=== PATIENT | female | born 1945 | race Caucasian/White ===

== ENCOUNTER → 2017-09-30 | Outpatient (CLI) | payer OTHER, MEDICARE ==
[~2017-09-30] MED LIST: ACET650T24 PO; ADV250 IH; ASPI-555 PO; CHOL50004 PO; CLON1TAB4 PO; FLAX100031 PO; FLUT16H NASAL; HYDR12.530 PO; ISOS30TA6 PO; LEVO25TA54 PO; MELA3TAB69 PO; MULT-1203 PO; NEBI10TA PO; POTA-79 PO; TERB250T51 PO; TOPI50TA24 PO; VITA-158 PO; VITA400C70 PO; potassium PO; vitamin a PO; vitamin c PO
== END ==
LOC: RAH 09-29 11:38
PROVIDERS: ATTEND Internal Medicine
DX: M25.552 Pain in left hip (principal); M25.551 Pain in right hip
CPT/HCPCS: 73522

== ENCOUNTER 2017-10-05 21:13 | Emergency (ER) | payer OTHER, MEDICARE ==
[~2017-10-05 21:13] MED LIST changes: -CLON1TAB4 PO; +CLON1TAB5 PO
[2017-10-05] MEDS ORDERED: SODIUM CHLORIDE 0.9% 500ML 500 ML IV ONE (21:47)
[2017-10-05 21:53] LABS: BASOPHILS % (AUTO) 0.5 % (0.0-5.0); EOSINOPHILS % (AUTO) 1.7 % (0.0-8.0); HEMATOCRIT 42.3 % (36-48); MEAN CORPUSCULAR HEMOGLOBIN 30.4 pg (27.0-33.0); MEAN CORPUSCULAR HGB CONC 34.4 g/dL (32.0-36.0); MEAN CORPUSCULAR VOLUME 88.5 fL (79-99); MONOCYTES % (AUTO) 8.7 % (3.0-13.0); NEUTROPHILS % (AUTO) 60.1 % (40.0-77.0); NUCLEATED RED BLOOD CELLS 0.1 % (0.0-0.19); PLATELET COUNT (AUTO) 329 K/uL (130-400); RED BLOOD CELL COUNT(AUTO) 4.78 MIL/uL (4.00-5.50); RED CELL DISTRIBUTION WIDTH 13.6 % (11.0-15.5); WHITE BLOOD COUNT (AUTO) 9.5 K/uL (4.8-10.8)
[2017-10-05 21:55] LABS: CREATININE 0.8 mg/dL (0.5-1.5); POTASSIUM 3.7 mmol/L (3.5-5.1)
[2017-10-05 21:59] LABS: ALBUMIN 3.4 g/dL (3.5-5.0); BILIRUBIN,TOTAL 0.3 mg/dL (0.2-1.0); TOTAL PROTEIN, SERUM 7.1 g/dL (6.0-8.3)
== END 2017-10-06 00:03 | disposition home or self-care (01) ==
LOC: EDH 21:13
DX: F41.9 Anxiety disorder, unspecified (principal); G47.00 Insomnia, unspecified; E07.9 Disorder of thyroid, unspecified; Z88.0 Allergy status to penicillin; Z88.6 Allergy status to analgesic agent; Z88.2 Allergy status to sulfonamides; Z88.7 Allergy status to serum and vaccine
CPT/HCPCS: 36415; 80053; 82550; 84484; 85025; 93005; 96360; 99285; J7040

== ENCOUNTER → 2018-08-05 | Outpatient (CLI) | payer OTHER, MEDICARE ==
[~2018-08-05] MED LIST changes: +CLON1TAB12 PO; -CLON1TAB5 PO
== END | disposition home or self-care (01) ==
LOC: RAH 08:25
PROVIDERS: ATTEND Internal Medicine
DX: M47.816 Spondylosis without myelopathy or radiculopathy, lumbar region (principal); M85.88 Other specified disorders of bone density and structure, other site
CPT/HCPCS: 72100

== ENCOUNTER 2019-01-11 10:21 | Observation (INO) | payer OTHER, MEDICARE ==
[~2019-01-11] VITALS: Ht 167.6 cm; Wt 96.6 kg
[2019-01-11 10:53] LABS: BASOPHILS % (AUTO) 0.3 % (0.0-5.0); EOSINOPHILS % (AUTO) 0.3 % (0.0-8.0); HEMATOCRIT 38.2 % (36-48); LYMPHOCYTES % (AUTO) 7.6 % (21.0-51.0); MEAN CORPUSCULAR HEMOGLOBIN 30.7 pg (27.0-33.0); MEAN CORPUSCULAR HGB CONC 33.8 g/dL (32.0-36.0); MEAN CORPUSCULAR VOLUME 90.8 fL (79-99); MONOCYTES % (AUTO) 6.9 % (3.0-13.0); NEUTROPHILS % (AUTO) 84.9 % (40.0-77.0); PLATELET COUNT (AUTO) 284 K/uL (130-400); RED BLOOD CELL COUNT(AUTO) 4.21 MIL/uL (4.00-5.50); WHITE BLOOD COUNT (AUTO) 11.1 K/uL (4.8-10.8)
[2019-01-11] MEDS ORDERED: SODIUM CHLORIDE 0.9% 500ML 500 ML IV ONE (11:02)
[2019-01-11 11:03] LABS: CREATININE 0.8 mg/dL (0.5-1.5); POTASSIUM 3.8 mmol/L (3.5-5.1)
[2019-01-11 11:07] LABS: INR 1.02 (0.85-1.15); PARTIAL THROMBOPLASTIN TIME 29.3 SEC (26.3-35.5); PROTHROMBIN TIME 10.7 SEC (9.6-11.6)
[2019-01-11 11:10] LABS: ALBUMIN 3.1 g/dL (3.5-5.0); BILIRUBIN,TOTAL 0.6 mg/dL (0.2-1.0); TOTAL PROTEIN, SERUM 5.8 g/dL (6.0-8.3)
[2019-01-11] MEDS ORDERED: SODIUM CHLORIDE 0.9% 1000ML 1,000 ML IV SCH (12:46)
[2019-01-11] MEDS ORDERED: ACETAMINOPHEN 325 MG TAB PO PRN (13:00)
[2019-01-11] MEDS ORDERED: ONDANSETRON HCL 4 MG/2 ML VIAL IV PRN (13:00)
[2019-01-11] MEDS ORDERED: HYDRALAZINE HCL 20 MG/ML VIAL IV PRN (13:00)
[2019-01-11] MEDS ORDERED: SODIUM CHLORIDE 0.9% 1000ML 1,000 ML IV ONE (15:39)
[2019-01-11 18:18] VITALS: BP 116/46
--- NOTE | 2019-01-11 18:32 | NUR ---
PATIENT ARRIVED IN ROOM FROM CT.
[2019-01-11] MEDS ORDERED: POTASSIUM CL (18:49)
[2019-01-11] MEDS ORDERED: ASPI-1197 PO (18:49)
[2019-01-11] MEDS ORDERED: CHLO4TAB28 PO (18:49)
[2019-01-11] MEDS ORDERED: ALPR0.255 PO (18:49)
[2019-01-11] MEDS ORDERED: PANT40TA25 PO (19:03)
[2019-01-11] MEDS ORDERED: ACET-2743 PO (19:03)
[2019-01-11 20:00] VITALS: BP 128/57
[2019-01-11] MEDS ORDERED: FAMOTIDINE/PF 20 MG/2 ML VIAL IV SCH (21:00)
[2019-01-11] MEDS: ACETAMINOPHEN 325 MG TAB PO PRN (21:26)
[2019-01-11 22:59] LABS: CREATINE KINASE, TOTAL 26 U/L (21-232); MYOGLOBIN 41 ng/mL (10-92); THYROID STIMULATING HORMONE 0.45 uIU/mL (0.36-3.74); TROPONIN I < 0.04 ng/mL (0.00-0.06)
[2019-01-12] VITALS: BP 121/50
[2019-01-12 04:00] VITALS: BP 120/62
[2019-01-12 04:18] LABS: CREATINE KINASE, TOTAL 29 U/L (21-232); MYOGLOBIN 40 ng/mL (10-92); TROPONIN I < 0.04 ng/mL (0.00-0.06)
[2019-01-12 08:00] VITALS: BP 121/48
[2019-01-12] MEDS ORDERED: SUB TO BREO ELLIPTA 100MCG/25MCG PER P&T IH SCH (09:00)
[2019-01-12] MEDS ORDERED: ASPIRIN 81MG TAB.CHEW PO SCH (09:00)
[2019-01-12] MEDS: FLUTICASONE PROPIONATE 50MCG/SPRAY 16 GM BOTTLE EN SCH ×2 (09:21→20:30)
[2019-01-12] MEDS: ALPRAZOLAM 0.25 MG TABLET PO SCH (09:22)
[2019-01-12] MEDS: ACETAMINOPHEN 325 MG TAB PO PRN ×3 (09:22→23:14)
[2019-01-12] MEDS: ASCORBIC ACID 500 MG TAB PO SCH (09:22)
[2019-01-12] MEDS: ASPIRIN 81MG TAB.CHEW PO SCH (09:23)
[2019-01-12] MEDS: VITAMIN E 400 UNIT CAPSULE PO SCH (09:23)
[2019-01-12] MEDS: LEVOTHYROXINE 25 MCG TABLET PO SCH (09:23)
[2019-01-12] MEDS: PANTOPRAZOLE SODIUM 40 MG TABLET.DR PO SCH (09:24)
[2019-01-12] MEDS: NEBIVOLOL HCL 5 MG TABLET PO SCH (09:25)
--- NOTE | 2019-01-12 09:30 | NUR ---
INITIAL MET W PT FOR DC PLANNING LIVES ALONE, USES MOSTLY MEDICAL TRANSPORT, BUT HAS A [employer] OF FRIEND THAT CAN PROVIDE TRANSPORT IF NEEDED.LIVES IN AN APT W AN ELEVATOR. USES A WALKER, ROLLING WALKER, AND [facility] [employer] R PROVIDER SERVICE WEEKLY, DCP HOME, NO DC NEEDS AT THIS TIME, WILL FOLLOW. Addendum: 01/13/19 at 1850 by RANGEL DUONG RN CM Amended: Links added.
[2019-01-12] MEDS: ENOXAPARIN SODIUM 40 MG/0.4 ML SYRINGE SQ SCH (09:31)
[2019-01-12 09:50] LABS: CREATINE KINASE, TOTAL 23 U/L (21-232); MYOGLOBIN 33 ng/mL (10-92); TROPONIN I < 0.04 ng/mL (0.00-0.06)
[2019-01-12 12:00] VITALS: BP 125/59
--- NOTE | 2019-01-12 12:30 | NUR ---
C/O INCREASED PAIN TO THE RIGHT WRIST, SWELLING NOTED ON THE AREA. ARM ELEVATED ON A PILLOW. DR NAVARRO WAS MADE AWARE. ORDER RECEIVED FOR X-RAY.
[2019-01-12] MEDS: ALBUTEROL SULFATE 0.083% 2.5 MG/3 ML INH IH SCH ×3 (12:47→23:15)
--- NOTE | 2019-01-12 12:50 | NUR ---
DR FARAH CAME IN TO SEE THE PATIENT AND GOT A REPORT FROM HER REGARDING HER SYNCOPAL EPISODE. PLAN IS TO PLACE HER ON A NON INVASIVE HEART MONITOR.
--- NOTE | 2019-01-12 13:15 | NUR ---
SOLAR FIELD SERVICE TECHNICIAN IS HERE TO PERFORM THE ECHOCARDIOGRAM.
[2019-01-12] MEDS ORDERED: ADV250 IH (14:51)
[2019-01-12] MEDS ORDERED: GLUC-145 PO (14:51)
[2019-01-12] MEDS ORDERED: RALO60TA13 PO (14:51)
[2019-01-12] MEDS ORDERED: CALC-1009 PO (14:51)
[2019-01-12 16:00] VITALS: BP 140/60
[2019-01-12] MEDS: BUDESONIDE 0.5 MG/2 ML INH IH SCH (18:13)
[2019-01-12 20:00] VITALS: BP 120/56
[2019-01-12] MEDS: CHLORPHENIRAMINE 4 MG PO SCH (20:31)
[2019-01-12] MEDS: **HM** MELATONIN 3MG PO SCH (20:32)
[2019-01-12 22:39] LABS: APPEARANCE,URINE Clear (CLEAR); BILIRUBIN,URINE Negative (NEGATIVE); COLOR,URINE Yellow (YELLOW); GLUCOSE, URINE (UA) Negative (NEGATIVE); KETONES,URINE Negative (NEGATIVE); LEUKOCYTE ESTERASE ,URINE Small (NEGATIVE); NITRATE,URINE Negative (NEGATIVE); OCCULT BLOOD,URINE Negative (NEGATIVE); PROTEIN,URINE Negative (NEGATIVE)
[2019-01-12 23:03] LABS: BACTERIA,URINE Few /HPF (None Seen); RBC,URINE 0-1 /HPF (0-1); SQUAMOUS EPITHELIAL CELL,UR Moderate /HPF (0-2)
[2019-01-13] VITALS (7 sets, daily range): BP systolic 110–152; BP diastolic 50–80
[2019-01-13] MEDS: ACETAMINOPHEN 325 MG TAB PO PRN ×2 (03:08→17:34)
[2019-01-13] MEDS: ALBUTEROL SULFATE 0.083% 2.5 MG/3 ML INH IH SCH ×4 (06:23→23:10)
[2019-01-13] MEDS: BUDESONIDE 0.5 MG/2 ML INH IH SCH ×2 (06:23→18:21)
[2019-01-13] MEDS ORDERED: HYDROCHLOROTHIAZIDE 25 MG TABLET PO SCH (09:00)
[2019-01-13] MEDS: ALPRAZOLAM 0.25 MG TABLET PO SCH (09:00)
[2019-01-13] MEDS: NEBIVOLOL HCL 5 MG TABLET PO SCH (09:02)
[2019-01-13] MEDS: ASCORBIC ACID 500 MG TAB PO SCH (09:02)
[2019-01-13] MEDS: PANTOPRAZOLE SODIUM 40 MG TABLET.DR PO SCH (09:02)
[2019-01-13] MEDS: FLUTICASONE PROPIONATE 50MCG/SPRAY 16 GM BOTTLE EN SCH ×2 (09:02→20:31)
[2019-01-13] MEDS: LEVOTHYROXINE 25 MCG TABLET PO SCH (09:02)
[2019-01-13] MEDS: VITAMIN E 400 UNIT CAPSULE PO SCH (09:03)
[2019-01-13] MEDS: ASPIRIN 81MG TAB.CHEW PO SCH (09:03)
[2019-01-13] MEDS: ENOXAPARIN SODIUM 40 MG/0.4 ML SYRINGE SQ SCH (09:04)
--- NOTE | 2019-01-13 17:35 | NUR ---
RIGHT HAND SWELLING Site erythematous and swollen. Three ice packs have lynn given for 20-minutes each. Patient reports her discomfort and swelling has improved considerably. Tylenol given at this time as requested.
--- NOTE | 2019-01-13 19:30 | NUR ---
MD ROUNDS PATIENT AWAKE AND ALERT SITTING UP TO CHAIR. VITALS STABLE. AFEBRILE. NO COMPLAINTS OF PAIN VOICED AT THIS TIME. VISITED WITH PATIENT. POC DISCUSSED. NEW ORDERS RECEIVED AND CARRIED OUT. PATIENT AWARE. WILL CONTINUE TO BE OBSERVED. CALL LIGHT WITHIN REACH. WILL CONTINUE TO BE OBSERVED. Addendum: 01/13/19 at 2019 by SPENCER PALMA RN RN Amended: Links added.
[2019-01-13] MEDS: CHLORPHENIRAMINE 4 MG PO SCH (20:29)
[2019-01-13] MEDS: **HM** MELATONIN 3MG PO SCH (20:29)
[2019-01-13] MEDS ORDERED: TERB250T51 PO (20:52)
[2019-01-14 03:30] VITALS: BP 125/54
[2019-01-14 04:37] LABS: BASOPHILS % (AUTO) 0.3 % (0.0-5.0); EOSINOPHILS % (AUTO) 3.3 % (0.0-8.0); HEMATOCRIT 34.7 % (36-48); LYMPHOCYTES % (AUTO) 30.5 % (21.0-51.0); MEAN CORPUSCULAR HEMOGLOBIN 31.2 pg (27.0-33.0); MEAN CORPUSCULAR HGB CONC 34.8 g/dL (32.0-36.0); MEAN CORPUSCULAR VOLUME 89.8 fL (79-99); MONOCYTES % (AUTO) 9.2 % (3.0-13.0); NEUTROPHILS % (AUTO) 56.7 % (40.0-77.0); PLATELET COUNT (AUTO) 313 K/uL (130-400); RED BLOOD CELL COUNT(AUTO) 3.86 MIL/uL (4.00-5.50); RED CELL DISTRIBUTION WIDTH 12.5 % (11.0-15.5); WHITE BLOOD COUNT (AUTO) 7.8 K/uL (4.8-10.8)
[2019-01-14 04:50] LABS: CREATININE 0.7 mg/dL (0.5-1.5); MAGNESIUM 1.9 mg/dL (1.80-2.40); PHOSPHORUS 3.5 mg/dL (2.5-4.9); POTASSIUM 3.3 mmol/L (3.5-5.1)
[2019-01-14] MEDS: ACETAMINOPHEN 325 MG TAB PO PRN ×2 (05:29→09:38)
[2019-01-14] MEDS: BUDESONIDE 0.5 MG/2 ML INH IH SCH ×2 (06:22→18:08)
[2019-01-14] MEDS: ALBUTEROL SULFATE 0.083% 2.5 MG/3 ML INH IH SCH ×3 (06:22→18:08)
[2019-01-14] MEDS ORDERED: ISOSORBIDE MONO 60 MG TAB.SR PO SCH (09:00)
[2019-01-14] MEDS: ASPIRIN 81MG TAB.CHEW PO SCH (09:00)
[2019-01-14 09:07] VITALS: BP 132/80
[2019-01-14] MEDS ORDERED: PHARMACY COMMUNICATION MISC SCH (09:30)
[2019-01-14] MEDS: FLUTICASONE PROPIONATE 50MCG/SPRAY 16 GM BOTTLE EN SCH (09:34)
[2019-01-14] MEDS: PANTOPRAZOLE SODIUM 40 MG TABLET.DR PO SCH (09:35)
[2019-01-14] MEDS: ASCORBIC ACID 500 MG TAB PO SCH (09:36)
[2019-01-14] MEDS: VITAMIN E 400 UNIT CAPSULE PO SCH (09:37)
[2019-01-14] MEDS: LEVOTHYROXINE 25 MCG TABLET PO SCH (09:37)
[2019-01-14] MEDS: ENOXAPARIN SODIUM 40 MG/0.4 ML SYRINGE SQ SCH (09:40)
[2019-01-14] MEDS: NEBIVOLOL HCL 5 MG TABLET PO SCH (10:39)
[2019-01-14 12:04] VITALS: BP 155/64
[2019-01-14] MEDS ORDERED: POTASSIUM CHLORIDE 20 MEQ ERTAB PO SCH (14:30)
[2019-01-14 16:00] VITALS: BP 106/46
--- NOTE | 2019-01-14 17:37 | NUR ---
DR. NAVARRO Paged him to inform him of BP readings. Stated he is coming in 20 minutes.
[2019-01-14] MEDS ORDERED: ISOS30TA6 PO (18:17)
--- NOTE | 2019-01-14 20:50 | NUR ---
Re: Discharge Rcvd order to d/c patient, IC access removed aseptically with catheter tip intact, instructions given with emphasis on Imdur dos change which pt acknowledges, RC given & also mention she was told by Dr. 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 PT all concern/ questions addressed. No new medication order, reviewed & verbalizes comprehension. Pt currently just waiting for her sisal picker ride.
[2019-01-14] MEDS ORDERED: ALPRAZOLAM 0.25 MG TABLET PO SCH (21:00)
== END 2019-01-14 21:10 | disposition home or self-care (01) ==
LOC: EDH 10:21 → EDHIP 12:46 → 3AH 17:59
PROVIDERS: ADMIT Internal Medicine; ATTEND Internal Medicine
DX: R55 Syncope and collapse (principal); D72.829 Elevated white blood cell count, unspecified; E03.9 Hypothyroidism, unspecified; I10 Essential (primary) hypertension; I25.10 Atherosclerotic heart disease of native coronary artery without angina pectoris; I34.0 Nonrheumatic mitral (valve) insufficiency; J45.909 Unspecified asthma, uncomplicated; K21.9 Gastro-esophageal reflux disease without esophagitis; K22.4 Dyskinesia of esophagus; M85.80 Other specified disorders of bone density and structure, unspecified site; Z82.0 Family history of epilepsy and other diseases of the nervous system; Z82.3 Family history of stroke; Z82.49 Family history of ischemic heart disease and other diseases of the circulatory system; Z82.5 Family history of asthma and other chronic lower respiratory diseases; Z83.3 Family history of diabetes mellitus; Z90.89 Acquired absence of other organs; Z98.41 Cataract extraction status, right eye; Z98.42 Cataract extraction status, left eye; Z86.73 Personal history of transient ischemic attack (TIA), and cerebral infarction without residual deficits; Z88.8 Allergy status to other drugs, medicaments and biological substances; Z79.899 Other long term (current) drug therapy
CPT/HCPCS: 36415 ×3; 70450; 71045; 73130; 80048; 80053; 81001; 82550 ×4; 83735; 83874 ×3; 83880; 84100; 84443; 84484 ×4; 85025 ×2; 85610; 85730; 93005 ×2; 93880; 94640 ×15; 94664; 96361; 96372 ×3; 96374; 99284; C8929; G0378 ×78; J1650 ×3; J3490; J7030 ×2; J7040

== ENCOUNTER → 2019-11-14 | Outpatient (CLI) | payer OTHER, MEDICARE ==
[~2019-11-14] MED LIST changes: +ACET-2743 PO; -ACET650T24 PO; +ALPR0.255 PO; +ASPI-1197 PO; +CALC-1009 PO; +CHLO4TAB28 PO; -CLON1TAB12 PO; -FLAX100031 PO; +GLUC-145 PO; -HYDR12.530 PO; +PANT40TA25 PO; +RALO60TA13 PO; -TOPI50TA24 PO; +VITA-164 PO; -VITA400C70 PO; -potassium PO
== END | disposition home or self-care (01) ==
LOC: RAH 13:56
PROVIDERS: ATTEND Internal Medicine
DX: Z12.31 Encounter for screening mammogram for malignant neoplasm of breast (principal)
CPT/HCPCS: 77067

== ENCOUNTER → 2020-11-19 | Outpatient (CLI) | payer OTHER, MEDICARE ==
[~2020-11-19] MED LIST changes: -ASPI-555 PO; +ASPI-556 PO; -ISOS30TA6 PO; +ISOS30TA92 PO; -PANT40TA25 PO; +PANT40TA54 PO
== END | disposition home or self-care (01) ==
LOC: RAH 09:20
PROVIDERS: ATTEND Internal Medicine
DX: Z12.31 Encounter for screening mammogram for malignant neoplasm of breast (principal)
CPT/HCPCS: 77067

== ENCOUNTER → 2021-01-09 | Outpatient (CLI) | payer OTHER, MEDICARE | END | disposition home or self-care (01) | LOC: RAH 10:14 | PROVIDERS: ATTEND Internal Medicine | DX: M79.604 Pain in right leg (principal); M79.89 Other specified soft tissue disorders; M17.11 Unilateral primary osteoarthritis, right knee | CPT/HCPCS: 73590 ==

== ENCOUNTER 2021-11-05 20:49 | Emergency (ER) | payer OTHER, MEDICARE ==
[~2021-11-05] VITALS: Ht 167.6 cm; Wt 86.2 kg
[~2021-11-05 20:49] MED LIST changes: -TERB250T51 PO; +TERB250T89 PO
[2021-11-06] MEDS ORDERED: LORAZEPAM 2 MG/ML 1 ML VIAL ONE (01:49)
[2021-11-06] MEDS ORDERED: LORAZEPAM 2 MG/ML 1 ML VIAL IVP ONE (02:30)
[2021-11-06] MEDS ORDERED: ACETAMINOPHEN 325 MG TAB ONE (03:27)
[2021-11-06] MEDS ORDERED: ACETAMINOPHEN 325 MG TAB PO ONE (03:30)
[2021-11-06 05:12] VITALS: BP 113/56
== END 2021-11-06 06:40 | disposition home or self-care (01) ==
LOC: EDH 20:49
DX: S80.211A Abrasion, right knee, initial encounter (principal); S50.811A Abrasion of right forearm, initial encounter; S96.912A Strain of unspecified muscle and tendon at ankle and foot level, left foot, initial encounter; S86.912A Strain of unspecified muscle(s) and tendon(s) at lower leg level, left leg, initial encounter; S66.912A Strain of unspecified muscle, fascia and tendon at wrist and hand level, left hand, initial encounter; I10 Essential (primary) hypertension; G40.909 Epilepsy, unspecified, not intractable, without status epilepticus; J45.909 Unspecified asthma, uncomplicated; Z90.49 Acquired absence of other specified parts of digestive tract; Z88.0 Allergy status to penicillin; Z88.2 Allergy status to sulfonamides; Z88.5 Allergy status to narcotic agent; Z88.6 Allergy status to analgesic agent; Z88.7 Allergy status to serum and vaccine; W01.10XA Fall on same level from slipping, tripping and stumbling with subsequent striking against unspecified object, initial encounter; Y93.89 Activity, other specified; Y92.89 Other specified places as the place of occurrence of the external cause; Y99.8 Other external cause status; Z79.82 Long term (current) use of aspirin; Z79.899 Other long term (current) drug therapy
CPT/HCPCS: 70450; 72125; 73030; 73110; 73562; 73610; 96374; 99284; J2060

== ENCOUNTER 2021-12-27 14:56 | Emergency (ER) | payer OTHER, MEDICARE ==
[~2021-12-27] VITALS: Ht 167.6 cm; Wt 85.3 kg
[2021-12-27 14:57] VITALS: BP 130/48
== END 2021-12-27 16:32 | disposition home or self-care (01) ==
LOC: EDH 14:56
DX: S42.212A Unspecified displaced fracture of surgical neck of left humerus, initial encounter for closed fracture (principal); S50.12XA Contusion of left forearm, initial encounter; I10 Essential (primary) hypertension; J45.909 Unspecified asthma, uncomplicated; Z79.51 Long term (current) use of inhaled steroids; Z79.82 Long term (current) use of aspirin; Z79.899 Other long term (current) drug therapy; Z88.0 Allergy status to penicillin; Z88.2 Allergy status to sulfonamides; Z88.5 Allergy status to narcotic agent; Z88.6 Allergy status to analgesic agent; Z88.7 Allergy status to serum and vaccine; Z88.8 Allergy status to other drugs, medicaments and biological substances; Z90.49 Acquired absence of other specified parts of digestive tract; X58.XXXA Exposure to other specified factors, initial encounter; Y93.89 Activity, other specified; Y92.89 Other specified places as the place of occurrence of the external cause; Y99.8 Other external cause status
CPT/HCPCS: 73030; 73080; 73100

== ENCOUNTER 2022-02-01 10:19 | Emergency (ER) | payer OTHER, MEDICARE ==
[~2022-02-01] VITALS: Ht 167.6 cm; Wt 83.5 kg
[2022-02-01 10:32] VITALS: BP 144/80
== END 2022-02-01 11:13 | disposition home or self-care (01) ==
LOC: EDH 10:19
DX: S46.912A Strain of unspecified muscle, fascia and tendon at shoulder and upper arm level, left arm, initial encounter (principal); J45.909 Unspecified asthma, uncomplicated; I10 Essential (primary) hypertension; Z88.0 Allergy status to penicillin; Z88.2 Allergy status to sulfonamides; Z88.5 Allergy status to narcotic agent; Z88.6 Allergy status to analgesic agent; Z88.7 Allergy status to serum and vaccine; Z88.8 Allergy status to other drugs, medicaments and biological substances; Z90.49 Acquired absence of other specified parts of digestive tract; Z79.51 Long term (current) use of inhaled steroids; Z79.82 Long term (current) use of aspirin; Z79.899 Other long term (current) drug therapy; X58.XXXA Exposure to other specified factors, initial encounter; Y93.89 Activity, other specified; Y92.89 Other specified places as the place of occurrence of the external cause; Y99.8 Other external cause status
CPT/HCPCS: 73030

== ENCOUNTER 2022-12-13 21:46 | Emergency (ER) | payer OTHER, MEDICARE ==
[~2022-12-13] VITALS: Ht 167.6 cm; Wt 89.8 kg
[~2022-12-13 21:46] MED LIST changes: +POTA-364 PO; -POTA-79 PO; -VITA-164 PO; +VITA-348 PO
[2022-12-13 22:53] LABS: BASOPHILS % (AUTO) 0.5 % (0.0-5.0); EOSINOPHILS % (AUTO) 2.1 % (0.0-8.0); HEMATOCRIT 37.9 % (36-48); LYMPHOCYTES % (AUTO) 30.9 % (21.0-51.0); MEAN CORPUSCULAR HEMOGLOBIN 29.9 pg (27.0-33.0); MEAN CORPUSCULAR HGB CONC 33.2 g/dL (32.0-36.0); MEAN CORPUSCULAR VOLUME 89.8 fL (79-99); MONOCYTES % (AUTO) 8.3 % (3.0-13.0); NEUTROPHILS % (AUTO) 57.9 % (40.0-77.0); PLATELET COUNT (AUTO) 279 K/uL (130-400); RED BLOOD CELL COUNT(AUTO) 4.22 MIL/uL (4.00-5.50); RED CELL DISTRIBUTION WIDTH 13.6 % (11.0-15.5); WHITE BLOOD COUNT (AUTO) 7.9 K/uL (4.8-10.8)
[2022-12-13] MEDS ORDERED: ACETAMINOPHEN 500 MG TABLET PO ONE (23:00)
[2022-12-13 23:05] LABS: CREATININE 0.6 mg/dL (0.5-1.5); POTASSIUM 3.6 mmol/L (3.5-5.1)
[2022-12-14] MEDS ORDERED: CYCL10TA16 PO (01:32)
[2022-12-14 01:49] VITALS: BP 143/68
== END 2022-12-14 02:00 | disposition home or self-care (01) ==
LOC: EDH 21:46
DX: S66.811A Strain of other specified muscles, fascia and tendons at wrist and hand level, right hand, initial encounter (principal); S56.811A Strain of other muscles, fascia and tendons at forearm level, right arm, initial encounter; S46.811A Strain of other muscles, fascia and tendons at shoulder and upper arm level, right arm, initial encounter; S46.812A Strain of other muscles, fascia and tendons at shoulder and upper arm level, left arm, initial encounter; I10 Essential (primary) hypertension; E03.9 Hypothyroidism, unspecified; J44.9 Chronic obstructive pulmonary disease, unspecified; Z79.82 Long term (current) use of aspirin; Z79.899 Other long term (current) drug therapy; Z87.19 Personal history of other diseases of the digestive system; Z98.890 Other specified postprocedural states; Z88.0 Allergy status to penicillin; Z88.2 Allergy status to sulfonamides; Z88.5 Allergy status to narcotic agent; Z88.6 Allergy status to analgesic agent; Z88.7 Allergy status to serum and vaccine; Z88.8 Allergy status to other drugs, medicaments and biological substances; W18.39XA Other fall on same level, initial encounter; Y93.89 Activity, other specified; Y92.89 Other specified places as the place of occurrence of the external cause; Y99.8 Other external cause status
CPT/HCPCS: 36415; 70450; 71045; 72125; 72170; 73030; 73070; 73100; 80048; 82550; 85025

== ENCOUNTER 2023-04-19 12:16 | Emergency (ER) | payer OTHER, MEDICARE ==
[~2023-04-19] VITALS: Ht 167.6 cm; Wt 87.5 kg
[~2023-04-19 12:16] MED LIST changes: +CYCL10TA16 PO
[2023-04-19] MEDS ORDERED: ACETAMINOPHEN 325 MG TAB PO ONE (14:30)
[2023-04-19] MEDS ORDERED: LEVETIRACETAM 500 MG TABLET PO SCH ×2 (15:30)
[2023-04-19 16:26] VITALS: BP 158/68; PULSE 56; RESP 18; O2SAT 100
== END 2023-04-19 16:27 | disposition home or self-care (01) ==
LOC: EDH 12:16
DX: S16.1XXA Strain of muscle, fascia and tendon at neck level, initial encounter (principal); S01.83XA Puncture wound without foreign body of other part of head, initial encounter; J44.9 Chronic obstructive pulmonary disease, unspecified; I10 Essential (primary) hypertension; E03.9 Hypothyroidism, unspecified; Z79.51 Long term (current) use of inhaled steroids; Z79.82 Long term (current) use of aspirin; Z79.890 Hormone replacement therapy; Z79.899 Other long term (current) drug therapy; Z88.0 Allergy status to penicillin; Z88.2 Allergy status to sulfonamides; Z88.5 Allergy status to narcotic agent; Z88.6 Allergy status to analgesic agent; Z88.7 Allergy status to serum and vaccine; Z88.8 Allergy status to other drugs, medicaments and biological substances; W18.09XA Striking against other object with subsequent fall, initial encounter; Y93.89 Activity, other specified; Y92.89 Other specified places as the place of occurrence of the external cause; Y99.8 Other external cause status
CPT/HCPCS: 70450; 72125

== ENCOUNTER 2024-02-22 11:14 | Emergency (ER) | payer OTHER, MEDICARE ==
[~2024-02-22] VITALS: Ht 167.6 cm; Wt 89.4 kg
[2024-02-22 11:41] VITALS: BP 95/79; PULSE 55; RESP 16; O2SAT 99
[2024-02-22 11:48] LABS: BASOPHILS # (AUTO) 0.03 K/uL (0.00-0.20); BASOPHILS % (AUTO) 0.6 % (0.0-5.0); EOSINOPHILS # (AUTO) 0.11 K/uL (0.00-0.70); EOSINOPHILS % (AUTO) 2.3 % (0.0-8.0); HEMATOCRIT 35.3 % (36-48); IMMATURE GRANULOCYTE ABSOLUTE 0.01 K/uL (0-1); LYMPHOCYTES # (AUTO) 1.4 K/uL (1.0-4.8); LYMPHOCYTES % (AUTO) 29.7 % (21.0-51.0); MEAN CORPUSCULAR HEMOGLOBIN 29.6 pg (27.0-33.0); MEAN CORPUSCULAR HGB CONC 34.3 g/dL (32.0-36.0); MEAN CORPUSCULAR VOLUME 86.3 fL (79-99); MONOCYTES # (AUTO) 0.5 K/uL (0.1-1.0); NEUTROPHILS # (AUTO) 2.7 K/uL (1.8-7.7); NEUTROPHILS % (AUTO) 57.2 % (40.0-77.0); PLATELET COUNT (AUTO) 292 K/uL (130-400); RED BLOOD CELL COUNT(AUTO) 4.09 MIL/uL (4.00-5.50); RED CELL DISTRIBUTION WIDTH 13.2 % (11.0-15.5); WHITE BLOOD COUNT (AUTO) 4.8 K/uL (4.8-10.8)
[2024-02-22] MEDS: 0.9%NACL 1000ML 1,000 ML IV ONE (11:50)
[2024-02-22 12:01] LABS: CREATININE 0.7 mg/dL (0.5-1.0); POTASSIUM 4.3 mmol/L (3.5-5.1)
[2024-02-22 12:05] LABS: ALBUMIN 3.2 g/dL (3.5-5.0); BILIRUBIN,TOTAL 0.3 mg/dL (0.2-1.0); TOTAL PROTEIN, SERUM 6.4 g/dL (6.0-8.3)
[2024-02-22] MEDS: LEVETIRACETAM 500 MG/5 ML SD VIAL IV SCH (13:35)
== END 2024-02-22 15:09 | disposition home or self-care (01) ==
LOC: EDH 11:14
DX: R55 Syncope and collapse (principal); E87.1 Hypo-osmolality and hyponatremia; I10 Essential (primary) hypertension; J44.9 Chronic obstructive pulmonary disease, unspecified; K21.9 Gastro-esophageal reflux disease without esophagitis; E03.9 Hypothyroidism, unspecified; Z79.82 Long term (current) use of aspirin; Z79.899 Other long term (current) drug therapy; Z88.6 Allergy status to analgesic agent; Z88.5 Allergy status to narcotic agent; Z88.0 Allergy status to penicillin; Z88.2 Allergy status to sulfonamides; Z88.8 Allergy status to other drugs, medicaments and biological substances; Z90.49 Acquired absence of other specified parts of digestive tract; Z98.890 Other specified postprocedural states
CPT/HCPCS: 99284; 96374; 84484; 80053; 85025; 82948; 36415; 93005; J1953; J7030

== ENCOUNTER → 2024-03-02 | Outpatient (CLI) | payer OTHER, MEDICARE | END | disposition home or self-care (01) | LOC: RAH 08:10 | PROVIDERS: ATTEND Internal Medicine | DX: Z12.31 Encounter for screening mammogram for malignant neoplasm of breast (principal); R92.323 Mammographic fibroglandular density, bilateral breasts | CPT/HCPCS: 77067 ==

== ENCOUNTER → 2024-04-17 | Outpatient (CLI) | payer OTHER, MEDICARE ==
[~2024-04-17] MED LIST changes: -NEBI10TA PO; +NEBI10TA10 PO
== END | disposition home or self-care (01) ==
LOC: RAH 12:15
PROVIDERS: ATTEND Nurse Practitioner Family
DX: M25.562 Pain in left knee (principal); M25.561 Pain in right knee; M79.605 Pain in left leg; W19.XXXD Unspecified fall, subsequent encounter
CPT/HCPCS: 73560; 73590

== ENCOUNTER → 2024-08-03 | Outpatient (CLI) | payer OTHER, MEDICARE ==
--- NOTE | 2024-08-03 15:12 | HMCIMG ---
Exam: CERVICAL SPINE 2 VIEWS REASON: CERVICALGIA TECHNIQUE: 4 views were obtained. FINDINGS: There are severe degenerative narrowing at C5-6 with moderate narrowing at C4-5 and C6-7. There is been millimeters anterior subluxation of C4 on C5. There are degenerative changes in the facets most pronounced at C3-4 and C4-5. There is straightening of the normal cervical curvature. There are no compression fractures. There are no focal lytic lesions. Stranding soft tissues appear unremarkable. IMPRESSION: 1. Severe cervical spondylosis.
--- NOTE | 2024-08-03 15:14 | HMCIMG ---
KNEE 3VWS LT REASON: PAIN IN LEFT KNEE TECHNIQUE: 3 views were obtained. FINDINGS: There is no evidence of fracture or dislocation. There is no joint effusion. The soft tissues appear unremarkable. There is no evidence of a radiopaque foreign body. IMPRESSION: No acute findings.
--- NOTE | 2024-08-03 15:14 | HMCIMG ---
EXAM: LUMBAR SPINE 2-3VWS REASON: LOW BACK PAIN. COMPARISON: None. TECHNIQUE: 3 views of the lumbar spine were obtained. FINDINGS: There is 18 degrees levoscoliosis of the mid lumbar spine. There are severe degenerative narrowing at L2-3 and L3-4. There is moderate narrowing at L5-S1. Alignment is normal and the lateral view. There are no compression fractures. There is calcification of the aorta without evidence of aneurysm Soft tissues appear unremarkable. IMPRESSION: 1. Marked degenerative disc disease at L2-3 and L3-4, there is also 18 degrees levoscoliosis epicentered at L3.
== END | disposition home or self-care (01) ==
LOC: RAH 14:04
PROVIDERS: ATTEND Internal Medicine
DX: M47.812 Spondylosis without myelopathy or radiculopathy, cervical region (principal); M48.02 Spinal stenosis, cervical region; M41.86 Other forms of scoliosis, lumbar region; M25.562 Pain in left knee; M54.50 Low back pain, unspecified; M51.369 Other intervertebral disc degeneration, lumbar region without mention of lumbar back pain or lower extremity pain; W19.XXXA Unspecified fall, initial encounter; Y93.89 Activity, other specified; Y92.89 Other specified places as the place of occurrence of the external cause; Y99.8 Other external cause status
CPT/HCPCS: 72040; 72100; 73562